=== PATIENT | male | born 1940 | race Caucasian/White ===

== ENCOUNTER 2017-07-15 11:42 | Emergency (ER) | payer OTHER ==
[2017-07-15 11:49] VITALS: BMI 27.4
--- NOTE | 2017-07-15 11:53 | PDOC ---
History of Present Illness - History of Present Illness Initial Comments: 07/15/17 15:23 The patient is a 77 year old male, with a significant past medical history of hypertension, heart disease, parkinsons disease, schizophrenia, UTI, who presents to the emergency department via ems from [facility] for fever and hydronephrosis. As per [place], the patient might have a kidney stone. Per [place], pt also had a fever this morning. He denies pain at this time. He denies chest pain, shortness of breath, headache and dizziness. He denies chills, nausea, vomit, diarrhea and constipation. He denies dysuria, frequency, urgency and hematuria. Pt denies weakness/numbness. Allergies: NKDA <Marielena Nunez - Last Filed: 07/15/17 15:23> <Pranav Ram - Last Filed: 07/15/17 16:58> - General Chief Complaint: Pain Stated Complaint: ABD PAIN Time Seen by Provider: 07/15/17 11:50 Past History <Marielena Nunez - Last Filed: 07/15/17 15:23> - Past Medical History Cardiac Disorders: Yes (acs) COPD: No HTN: Yes Psychiatric Problems: Yes (schizoaffective) - Suicide/Smoking/Psychosocial Hx Smoking History: Unknown if ever smoked Have you smoked in the past 12 months: No Information on smoking cessation initiated: No Hx Alcohol Use: No Drug/Substance Use Hx: No Substance Use Type: None <Pranav Ram - Last Filed: 07/15/17 16:58> - Past Medical History Allergies/Adverse Reactions: Allergies Allergy/AdvReac Type Severity Reaction Status Date / Time No Known Allergies Allergy Verified 07/15/17 11:43 Home Medications: Ambulatory Orders Acetaminophen [Tylenol -] 500 mg PO Q6H PRN 07/15/17 Amlodipine Besylate [Norvasc -] 10 mg PO DAILY 07/15/17 Benztropine Mesylate 0.5 mg PO HS 07/15/17 Ceftriaxone 1 gm/D5w [Rocephin 1 gm Premix Ivpb -] 1 gm IV DAILY 07/15/17 Cholecalciferol (Vitamin D3) [Vitamin D3 -] 1,000 unit PO DAILY 07/15/17 Dextrose 5 %-0.45 % Sod Chlord [Dextrose 5%-0.45% NaCl IV Soln] 70 ml IV Q24H Divalproex *ER* [Depakote *ER* -] 500 mg PO DAILY 07/15/17 Docusate Sodium 100 mg PO DAILY 07/15/17 Lubiprostone [Amitiza] 24 mcg PO BID 07/15/17 Magnesium Hydrox 2400MG/30Ml [Milk of Magnesia -] 30 ml PO ONCE PRN 07/15/17 Nitroglycerin [Nitrostat] 0.4 mg SL Q10M PRN 07/15/17 Polyethylene Glycol 3350 [Miralax (For Daily Use) -] 17 gm PO DAILY 07/15/17 Quetiapine Fumarate [Seroquel -] 50 mg PO BID 07/15/17 Risperidone [Risperdal] 1 mg PO HS 07/15/17 Sennosides [Senna] 8.6 mg PO DAILY 07/15/17 Sodium Phosphate/Na Biphos [Fleet Adult Rectal Enema] 133 ml RC ONCE PRN Review of Systems - Review of Systems Able to Perform ROS?: Yes Comments:: 07/15/17 15:23 GENERAL/CONSTITUTIONAL: No fever or chills. No weakness. HEAD, EYES, EARS, NOSE AND THROAT: No change in vision. No ear pain or discharge. No sore throat. GASTROINTESTINAL: No nausea, vomiting, diarrhea or constipation. GENITOURINARY: No dysuria, frequency, or change in urination. CARDIOVASCULAR: No chest pain or shortness of breath. RESPIRATORY: No cough, wheezing, or hemoptysis. MUSCULOSKELETAL: No joint or muscle swelling or pain. No neck or back pain. SKIN: No rash NEUROLOGIC: No headache, vertigo, loss of consciousness, or change in strength/ sensation. ENDOCRINE: No increased thirst. No abnormal weight change. HEMATOLOGIC/LYMPHATIC: No anemia, easy bleeding, or history of blood clots. ALLERGIC/IMMUNOLOGIC: No hives or skin allergy. <Marielena Nunez - Last Filed: 07/15/17 15:23> *Physical Exam - Vital Signs Last Vital Signs Temp Pulse Resp BP Pulse Ox 98.8 F 73 20 134/73 97 07/15/17 11:44 07/15/17 11:44 07/15/17 11:44 07/15/17 11:44 07/15/17 11:44 - Physical Exam Comments: 07/15/17 15:23 GENERAL: Awake, alert, and fully oriented, in no acute distress HEAD: No signs of trauma EYES: PERRLA, EOMI, sclera anicteric, conjunctiva clear ENT: Auricles normal inspection, hearing grossly normal, nares patent, oropharynx clear without exudates. Moist mucosa NECK: Normal ROM, supple, no lymphadenopathy, JVD, or masses LUNGS: Breath sounds equal, clear to auscultation bilaterally. No wheezes, and no crackles HEART: Regular rate and rhythm, normal S1 and S2, no murmurs, rubs or gallops ABDOMEN: Soft, nontender, normoactive bowel sounds. No guarding, no rebound. No masses. No CVAT EXTREMITIES: Normal range of motion, no edema. No clubbing or cyanosis. No cords, erythema, or tenderness BACK: No midline spinal tenderness in cervical/thoracic/lumbar region NEUROLOGICAL: Normal speech, cranial nerves grossly intact, no pronator drift. SKIN: Warm, Dry, normal turgor, no rashes or lesions noted. <Marielena Nunez - Last Filed: 07/15/17 15:23> - Vital Signs Last Vital Signs Temp Pulse Resp BP Pulse Ox 98.8 F 73 20 134/73 97 07/15/17 11:44 07/15/17 11:44 07/15/17 11:44 07/15/17 11:44 07/15/17 11:44 <Pranav Ram - Last Filed: 07/15/17 16:58> ED Treatment Course - LABORATORY CBC & Chemistry Diagram: 07/15/17 13:20 07/15/17 13:20 - RADIOLOGY Radiograph Interpretation: EXAM#: TYPE/EXAM: RESULT: [id number] CT/ABDOMEN PELVIS CT W/O CONTR HISTORY PROVIDED: Renal colic TECHNIQUE: Sequential axial images were obtained from the upper abdomen through the symphysis pubis utilizing urinary tract calculi protocol. Evaluation of the lung bases demonstrates a trace amount of left pleural fluid. There are interstitial changes within the lower lobes consistent with chronic lung disease. There is no evidence of acute infiltrates or pulmonary mass lesions. There is a hiatal hernia in the retrocardiac space. There are multiple calcifications within the left upper collecting system consistent with nonobstructing calculi. The largest stone is within the lower pole and measures approximately 1 cm. There are also multiple cysts within the left kidney with a mild degree of cortical atrophy. There is no evidence of hydronephrosis or obstructive uropathy. There is no evidence of right-sided nephrolithiasis. There is a small right cortical cyst. There is no evidence of right-sided hydronephrosis or obstructive uropathy. No significant abnormalities of the liver, spleen, pancreas, or adrenal glands were demonstrated. There is no evidence of intra-abdominal, retroperitoneal or pelvic mass lesions , fluid collections or lymphadenopathy. The prostate gland is mildly prominent. There is no evidence of acute bony abnormalities. IMPRESSION: Left nephrolithiasis with no evidence of hydronephrosis or obstructive uropathy. Please see above discussion. Reported By: Hussain Colon MD 07/15/17 1316 <Marielena Nunez - Last Filed: 07/15/17 15:23> - LABORATORY CBC & Chemistry Diagram: 07/15/17 13:20 07/15/17 13:20 <Pranav Ram - Last Filed: 07/15/17 16:58> Medical Decision Making - Medical Decision Making 07/15/17 15:23 Documentation prepared by Marielena Nunez, acting as medical examiner for Pranav Ram MD <Marielena Nunez - Last Filed: 07/15/17 15:23> - Medical Decision Making 07/15/17 12:12 77-year-old male with multiple medical problems including renal colic [facility] with hydronephrosis and concern for obstructing renal colic. Vitals unremarkable. Exam unremarkable, no CVA tenderness no abdominal tenderness to palpation. We'll obtain a CT abdomen and pelvis noncontrast as well as labs and urinalysis and reassess. 07/15/17 16:[address] abdomen and pelvis with multiple stones in the kidneys but no stones in the lower urinary tract, with no obstruction. Urinalysis with trace leuk esterase but otherwise negative. +leukocytosis to 15. Chest x-ray is clear. It's possible he may have a mild urinary tract infection and thus we'll treat with Keflex. Discussed the case with the admission nurse Ayana at [facility], and they accept the patient to return to his bed. Patient has remained asymptomatic during entire visit here in the emergency department and is hemodynamically stable. Discussed results with patient and informed him that he will be returning to the [facility]. I discussed the physical exam findings, ancillary test results and final diagnoses with the patient. I answered all of the patient's questions. The patient was satisfied with the care received and felt comfortable with the discharge plan and treatment plan. The patient will call their primary care physician within 24 hours to arrange follow-up and will return to the Emergency Department with any new, persistent or worsening symptoms. <Pranav Ram - Last Filed: 07/15/17 16:58> *DC/Admit/Observation/Transfer - Attestations Scribe Attestion: 07/15/17 13:33 Documentation prepared by Marielena Nunez, acting as medical examiner for Pranav Ram MD <Marielena Nunez - Last Filed: 07/15/17 15:23> - Discharge Dispostion Admit: No - Attestations Physician Attestion: 07/15/17 16:58 I, Dr. Pranav Ram MD, attest that this document has been prepared under my direction and personally reviewed by me in its entirety. I further attest, that it accurately reflects all work, treatment, procedures and medical decision -making performed by me. <Pranav Ram - Last Filed: 07/15/17 16:58> Diagnosis at time of Disposition: UTI (urinary tract infection) - Discharge Dispostion Disposition: [facility] Condition at time of disposition: Stable - Referrals Referrals: Juan R Holden MD [Primary Care Provider] - - Patient Instructions Printed Discharge Instructions: DI for Urinary Tract Infection (UTI) Additional Instructions: Follow-up with your primary care doctor at the [facility] within 1-2 days. Take the antibiotics as prescribed. Return to the emergency department if you have any new, worsening or concerning symptoms.
[2017-07-15 13:42] LABS: HEMATOCRIT 36.2 % (35.4-49); HEMOGLOBIN 11.9 GM/dL (11.7-16.9); MCH 29.7 pg (25.7-33.7); MEAN PLT VOLUME 9.3 fl (7.5-11.1); PLATELET COUNT 160 K/MM3 (134-434); RBC 4.02 M/mm3 (4.00-5.60); RDW 15.6 % (11.9-15.9); WHITE BLOOD COUNT 15.2 K/mm3 (4.0-10.0)
[2017-07-15 13:43] LABS: INR 1.14 (0.82-1.09); PROTHROMBIN TIME (PATIENT) 12.9 SEC (9.98-11.88)
[2017-07-15 13:46] LABS: ACTIVATED PTT 28.7 SECONDS (26.9-34.4)
[2017-07-15 13:56] LABS: ALBUMIN 2.1 g/dl (3.4-5.0); ANION GAP 10 (8-16); BILIRUBIN,TOTAL 0.7 mg/dL (0.2-1.0); BLOOD UREA NITROGEN 20 mg/dL (7-18); CALCIUM 8.5 mg/dL (8.5-10.1); CHLORIDE 101 mmol/L (98-107); CO2 27 mmol/L (21-32); CREATININE 0.6 mg/dL (0.7-1.3); GLUCOSE,RANDOM 98 mg/dL (74-106); SGPT/ALT 65 U/L (12-78); SODIUM 138 mmol/L (136-145); TOT PROT 6.6 g/dl (6.4-8.2)
[2017-07-15 13:59] LABS: ALK PHOS 89 U/L (45-117)
[2017-07-15 14:00] LABS: MAGNESIUM 1.9 mg/dL (1.8-2.4); POTASSIUM 4.1 mmol/L (3.5-5.1); SGOT/AST 90 U/L (15-37)
[2017-07-15 15:56] LABS: PLATELET ESTIMATE DECREASED; TARGET CELLS 1+
[2017-07-15 16:12] VITALS: BP 110/55; PULSE 74; TEMP 98.6
[2017-07-15 16:31] LABS: URINE APPEARANCE CLEAR; URINE BILIRUBIN NEGATIVE (NEGATIVE); URINE BLOOD 1+ (NEGATIVE); URINE COLOR YELLOW; URINE GLUCOSE (UA) NEGATIVE (NEGATIVE); URINE KETONE TRACE (NEGATIVE); URINE LEUK ESTERASE TRACE (NEGATIVE); URINE NITRITE NEGATIVE (NEGATIVE); URINE PROTEIN NEGATIVE (NEGATIVE); URINE UROBILINOGEN 4.0 E.U/dl mg/dL (0.2-1.0)
[2017-07-15 17:00] LABS: URINE BACTERIA RARE /hpf (NONE SEEN); URINE MUCUS RARE
== END 2017-07-15 20:48 ==
LOC: JER 11:42
DX: N39.0 Urinary tract infection, site not specified (principal); I10 Essential (primary) hypertension; G20 Parkinson's disease; F20.9 Schizophrenia, unspecified; I51.9 Heart disease, unspecified
CPT/HCPCS: 36415; 71046-TC; 74176-TC; 80053; 81003; 81015; 83735; 84484; 85025; 85610; 85730; 86850; 86900; 86901; 87086; 99283-25